=== PATIENT | male | born 1980 | race Caucasian/White ===

== ENCOUNTER 2018-07-26 08:28 | Emergency (ER) | payer BC, OTHER ==
[2018-07-26 09:17] LABS: Bilirubin Negative (Negative); Blood, Urine Negative (Negative); Clarity CLEAR (Clear); Glucose, Urine (Dipstick) Negative (Negative); Leukocyte Negative (Negative); Nitrite Negative (Negative); Protein, Urine (Dipstick) Negative (Neg-Trace); Specific Gravity, Urine 1.027 (1.002-1.036); Urobilinogen 0.2 mg/dL (0.2-1.0); pH, Urine 7.5 (5.0-9.0)
[2018-07-26] MEDS ORDERED: Dexamethasone 10 MG/ML VIAL ONE (09:49)
[2018-07-26] MEDS ORDERED: Ketorolac Tromethamine 60 MG/2 ML VIAL ONE (09:49)
--- NOTE | 2018-07-26 10:09 | RAD ---
SINGLE VIEW OF THE PELVIS: COMPARISON: None. HISTORY: Low back pain for 2 days. Injured back when lifting son 2 days ago. FINDINGS: A single view of the pelvis shows no evidence of acute fracture or dislocation. No degenerative wilks ges are seen. IMPRESSION: Unremarkable exam. POS: [facility]IN
--- NOTE | 2018-07-26 10:10 | RAD ---
THREE VIEWS LUMBOSACRAL SPINE: COMPARISON: None. HISTORY: Low back pain after lifting son 2 days ago. FINDINGS: Three views lumbosacral spine show normal height and alignment of the vertebral bodies and interverte bral disks without fracture or subluxation. Small osteophytes are seen in the superior end plates of L4 and L5. No other degenerative changes are seen. IMPRESSION: Mild degenerative changes of the lower lumbosacral spine without acute osseous abnormality. POS: G[facility]IN
== END 2018-07-26 10:14 | disposition home or self-care (01) ==
LOC: ERS 08:28
DX: S39.012A Strain of muscle, fascia and tendon of lower back, initial encounter (principal); F17.290 Nicotine dependence, other tobacco product, uncomplicated; X50.0XXA Overexertion from strenuous movement or load, initial encounter
CPT/HCPCS: 72100; 72170; 81003; 96372; J1100; J1885

== ENCOUNTER 2022-05-23 12:19 | Outpatient (CLI) | payer BC | END 2022-05-23 12:20 | disposition home or self-care (01) | LOC: BICULT 12:19 | PROVIDERS: ATTEND Otolaryngology Otolaryngic Allergy | DX: M54.2 Cervicalgia (principal) | CPT/HCPCS: 76536 ==